=== PATIENT | female | born 1950 ===

== ENCOUNTER 2022-05-22 19:53 | Emergency (ER) | payer MEDICARE, OTHER ==
[2022-05-22 21:02] LABS: ANION GAP 9.2 mEq/L (7-13)
[2022-05-22] MEDS ORDERED: cefTRIAXone 1 GM, Lidocaine 1% 2.1 ML IM ONE ×2 (22:05)
== END 2022-05-22 22:35 | disposition home or self-care (01) ==
LOC: DL.ED 19:53
DX: N30.00 Acute cystitis without hematuria (principal); E86.0 Dehydration; Z88.1 Allergy status to other antibiotic agents; Z79.899 Other long term (current) drug therapy
CPT/HCPCS: 36415; 80053; 81001; 83735; 85025; 87086; 87088; 87186; 96372; 99283; J0696